=== PATIENT | male | born 1945 | race Caucasian/White ===

== ENCOUNTER 2019-11-20 10:03 | Outpatient (CLI) | payer MEDICARE, OTHER, SELFPAY ==
--- NOTE | ~2019-11-20 | NM_ITS ---
EXAMINATION: NM bone scan whole body DATE: 11/20/2019 13:44 INDICATION: Prostate cancer TECHNIQUE: 21.9 mCi Tc-99m HDP was administered intravenously. Delayed whole-body scintigrams were o btained. COMPARISON: Chest radiograph and CT abdomen and pelvis dated 11/20/2019 FINDINGS: Symmetric likely degenerative joint centered uptake of moderate severity at the bilateral acromioclav icular, glenohumeral and sternoclavicular joints, the bilateral knees and with intense uptake at the bilateral first metatarsophalangeal joints. There is additional likely facet osteoarthritis related m ild increased uptake at the right side of the lower cervical and left side of the mid cervical spine. No other suspicious foci of abnormal bone uptake to suggest metastatic disease. IMPRESSION: 1. No evident osseous metastatic disease. Reviewed, dictated and finalized at location A.
--- NOTE | ~2019-11-20 | CT_ITS ---
EXAMINATION: CT abdomen pelvis w con DATE: 11/20/2019 10:56 INDICATION: Prostate cancer. TECHNIQUE: Computed tomography (CT) of the abdomen and pelvis was performed with 100 mL Omnipaque 350 intravenous contrast. Automated exposure control and iterative reconstruction technique were employe d. The dose-length product was 1448.58 mGy-cm. COMPARISON: None. FINDINGS: The visualized portions of the lung bases demonstrate mild atelectasis. There is elevation of right hemidiaphragm. No pleural effusion. The heart size is normal. There are coronary artery calc ifications. No pericardial effusion. A calcified right hilar lymph node is consistent with old granul omatous disease. There are cysts in the liver measuring up to 2.1 cm. The gallbladder is normal. Calc ifications in the spleen are consistent with old granulomatous disease. The pancreas, adrenal glands, and kidneys are normal. The prostate is moderately enlarged. There are likely changes of appendectom y. There is dilated small bowel in the right abdomen. There is mild periportal lymphadenopathy. The l argest node measures 14 x 25 mm. There is a right inguinal hernia containing fat. There is no free in traperitoneal fluid. There is a benign bone island in the sacrum. There is mild thoracolumbar spondyl osis. There is a hemangioma in thoracic spine. IMPRESSION: 1. Mild periportal lymphadenopathy, likely reactive. 2. Dilated small bowel in right abdomen without focal transition point, consistent with adynamic ileu s. Reviewed, dictated and finalized at location A. IMPRESSION: 1. Mild periportal lymphadenopathy, likely reactive. 2. Dilated small bowel in right abdomen without focal transition point, consist ent with adynamic ileus.
--- NOTE | ~2019-11-20 | XR_ITS ---
XR chest 2V DATE: 11/20/2019 11:02 INDICATION: Prostate cancer TECHNIQUE: 2 views COMPARISON: 02/23/2017 PA and lateral chest FINDINGS: There is chronic right diaphragmatic elevation and hepatic flexure interposition between th e diaphragm and liver. Normal heart size. Hilar or mediastinal enlargement. No pulmonary infiltrate or consolidation, pleura l effusion or pulmonary vascular congestion or pneumothorax is evident. Diffuse idiopathic skeletal hyperostosis and levoscoliosis of the lower thoracic spine. No apparent o steoblastic lesions are noted. IMPRESSION: Chronic elevation right diaphragm No active cardiopulmonary disease Reviewed, dictated and finalized at location A.
[2019-11-20 10:46] LABS: Estimated Glomerular Filt Rate 54
== END 2019-11-20 10:04 | disposition home or self-care (01) ==
PROVIDERS: PCP Internal Medicine; Visit Provider Urology
DX: C61 Malignant neoplasm of prostate (principal)
CPT/HCPCS: 36415; 71046; 74177; 78306; A9561; Q9967

== ENCOUNTER 2022-01-09 00:10 | Day surgery (SDC) | payer MEDICARE, OTHER, SELFPAY ==
[2021-12-21 14:39] VITALS: BMI 33.9
--- NOTE | 2022-01-08 13:49 | SUR.PREOP ---
Spoke with pt's . Discussed Magnesium Citrate recall. The said they were not able to purchase it. Instructions given to delay taking the Miralax till 6 or 7 pm tonight. voiced understanding.
[2022-01-09 12:02] VITALS: BP 160/77; PULSE 81; RESP 18; TEMP 35.8; O2SAT 98; BMI 34.7
[2022-01-09] MEDS: LACTATED RINGERS 1,000 ML 150 ML IV CONT (12:29)
--- NOTE | 2022-01-09 12:39 | PM.HPGS ---
History of Present Illness History of Present Illness Consent: Risks, benefits, and alternatives have been discussed and questions answered. Patient agrees to proceed with procedure. Chief complaint: positive cologuard Narrative: Mahamed Haines is a 76 year old male here for positive cologuard, never had colonoscopy Review of Systems Constitutional: Constitutional: Denies headache(s) and Denies weakness Eyes: Eyes: Denies blurry vision ENT: Reports Normal hearing present, Denies headache(s) and Denies neck pain Cardiovascular: Cardiovascular: Denies chest pain and Denies dyspnea Respiratory: Respiratory: Denies dyspnea Gastrointestinal: Gastrointestinal: Reports no additional gastrointestinal complaints Genitourinary: Genitourinary: Denies dysuria Musculoskeletal: Musculoskeletal: Denies neck pain Integumentary/Breasts: Skin/Breast: Denies dry skin Neurologic: Reports Normal hearing present, Denies headache(s) and Denies weakness Psychiatric: Psychiatric: Denies anxiety Endocrine: Endocrine: Denies change in body appearance Hematologic/Lymphatic: Hematologic/Lymphatic: Denies easy bleeding Allergic/Immunologic: Allergic/Immunologic: Denies urticaria PMFSH Past Medical History Medical History (Updated 11/30/21 @ 09:51 by Sven Braun MD) Hematochezia Positive colorectal cancer screening using Cologuard test PSVT (paroxysmal supraventricular tachycardia) Surgical History Surgical History (Updated 11/30/21 @ 09:26 by Cait [facility]) H/O hernia repair Family History Family History Mother Patient's mother is Family history of congestive heart failure Father Family history of malignant neoplasm, Onset Age: 59 Patient's father is Other Family history of cardiovascular disease Hypertension Social History Social History Smoking status: Never smoker Second hand tobacco smoke exposure: No Alcohol intake: never Substance use: never Substance use type: does not use Living arrangements: with family Spiritual care concerns: No Meds Home Medications and Allergies Home Medications Medication Instructions Recorded Confirmed Type mecobalamin (vitamin B12) 1,000 1,000 mcg sublingual DAILY 06/12/19 01/09/22 History mcg disintegrating tablet,sublingual clotrimazole-betamethasone 1 1 applic topical BID #45 grams 07/08/20 01/09/22 Rx %-0.05 % topical cream diltiazem HCl 180 mg 180 mg PO DAILY #90 caps 06/28/21 01/09/22 Rx capsule,extended release 24 hr metoprolol succinate 50 mg 50 mg PO DAILY #90 tabs 08/21/21 01/09/22 Rx tablet,extended release 24 hr simvastatin 10 mg tablet 10 mg PO DAILY #90 tabs 09/25/21 01/09/22 Rx Allergies Allergy/AdvReac Type Severity Reaction Status Date / Time No Known Allergies Allergy Verified 01/09/22 12:30 Vital Signs Vital Signs - 24 hr 01/09/22 12:02 Temperature 96.4 F L Pulse Rate 81 Respiratory Rate 18 Blood Pressure 160/77 H Pulse Oximetry 98 Oxygen Delivery Room Air Exam Const: General: comfortable and no acute distress HENMT: General nose exam: Normal nares present Eyes: General: appearance normal, both eyes and all related structures Neck: Neck: no JVD Resp: Auscultation: clear to auscultation bilaterally Cardio: Rate: regular rate Rhythm: regular rhythm GI: Inspection: non-distended GI Palp: Yes Soft to palpation Skin: General skin exam: normal color Neuro: General: gait normal Speech: normal speech Extrem: General: normal to inspection Psych: Mental Status: mental status grossly normal Assessment and Plan Assessment and plan (1) Positive colorectal cancer screening using Cologuard test: Code(s): R19.5 - Other fecal abnormalities Status: Acute Assessment and P
--- NOTE | 2022-01-09 12:48 | P.PNAN_ITS ---
Anes - Initial Pre Proc Eval Procedure: Operation Date: 01/09/22 13:30 Proposed Procedures p Colonoscopy - Sven Braun MD Date/Time: 01/09/22 12:48 Surgeon: Sven Braun MD Pre Op Diagnosis: positive cologuard Patient Data Age: 76 Gender: M Height: 1.83 m Weight: 116 kg Last Vital Signs Temp 96.4 F L 01/09/22 12:02 Pulse 81 01/09/22 12:02 Resp 18 01/09/22 12:02 BP 160/77 H 01/09/22 12:02 Pulse Ox 98 01/09/22 12:02 O2 Del Method Room Air 01/09/22 12:02 Allergies Allergy/AdvReac Type Severity Reaction Status Date / Time No Known Allergies Allergy Verified 01/09/22 12:30 Home Medications Medication Instructions Recorded Confirmed Type mecobalamin (vitamin B12) 1,000 1,000 mcg sublingual DAILY 06/12/19 01/09/22 History mcg disintegrating tablet,sublingual clotrimazole-betamethasone 1 1 applic topical BID #45 grams 07/08/20 01/09/22 Rx %-0.05 % topical cream diltiazem HCl 180 mg 180 mg PO DAILY #90 caps 06/28/21 01/09/22 Rx capsule,extended release 24 hr metoprolol succinate 50 mg 50 mg PO DAILY #90 tabs 08/21/21 01/09/22 Rx tablet,extended release 24 hr simvastatin 10 mg tablet 10 mg PO DAILY #90 tabs 09/25/21 01/09/22 Rx Patient hx anesthesia problems: none Family hx anesthesia problems: none Results Review: All pre-operative results and documents have been reviewed as part of the pre- operative evaluation. [facility] Past Medical History Medical History (Updated 11/30/21 @ 09:51 by Sven Braun MD) Hematochezia Positive colorectal cancer screening using Cologuard test PSVT (paroxysmal supraventricular tachycardia) Surgical History Surgical History (Updated 11/30/21 @ 09:26 by Cait Golden CMA) H/O hernia repair Family History Family History Mother Patient's mother is Family history of congestive heart failure Father Family history of malignant neoplasm, Onset Age: 59 Patient's father is Other Family history of cardiovascular disease Hypertension Social History Social History Smoking status: Never smoker Second hand tobacco smoke exposure: No Alcohol intake: never Substance use: never Substance use type: does not use Living arrangements: with family Spiritual care concerns: No Anes - Eval Final PreProcedure Day of Procedure 01/09/22 12:48 Patient weight: obese Heart: regular rate and rhythm Lungs: clear to auscultation Airway: Mallampati scale class III Neurological: alert and oriented Last oral intake: >/= 8 hours ASA classification: III Emergent: no Anesthetic plan: proceed Anesthesia type and monitoring: general GIVS and standard monitoring Results Review: All pre-operative results and documents have been reviewed as part of the pre- operative evaluation. Informed Consent: The patient's anesthetic plan and its attendant risks and benefits were discussed with the patient/family/POA. Questions were solicited and answers provided to the satisfaction of the patient/family/POA.
[2022-01-09 13:05] VITALS: BP 80/54; PULSE 70; RESP 19; O2SAT 93
[2022-01-09 13:15] VITALS: BP 105/54; PULSE 72; RESP 22; O2SAT 99
[2022-01-09 13:20] VITALS: BP 126/53; PULSE 65; RESP 22; O2SAT 97
== END 2022-01-09 13:35 | disposition home or self-care (01) ==
PROVIDERS: PCP Internal Medicine; Visit Provider Internal Medicine Gastroenterology
PROC: 0DJD8ZZ Inspection of Lower Intestinal Tract, Via Natural or Artificial Opening Endoscopic (ICD-10-PCS; CPT 45378; principal; 2022-01-09 13:30)
DX: R19.5 Other fecal abnormalities (principal); D12.2 Benign neoplasm of ascending colon; K64.8 Other hemorrhoids; K64.4 Residual hemorrhoidal skin tags; I47.1 Supraventricular tachycardia; E66.9 Obesity, unspecified; Z68.34 Body mass index [BMI] 34.0-34.9, adult
CPT/HCPCS: 45385; 88305; J2704; J7120

== ENCOUNTER 2023-04-20 14:35 | Emergency (ER) | payer MEDICARE, SELFPAY ==
--- NOTE | ~2023-04-20 | XR_ITS ---
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 RESULT: Lines, tubes, and devices: None. Lungs and pleura: Senescent changes, otherwise clear. Cardiomediastinal silhouette: Stable. Right hemidiaphragm elevation Other: Colonic interposition. Dilated loops of likely large bowel in the upper abdomen. No acute oss eous finding. IMPRESSION: Dilated loops of large bowel the upper abdomen with right hemidiaphragm elevation, slight progression since the prior study. Reviewed, dictated and finalized at location K. LLIGENCE SENIOR SERGEANT IMPRESSION: Dilated loops of large bowel the upper abdomen with right hemidiaphragm elevati on, slight progression since the prior study.
--- NOTE | 2023-04-20 14:36 | ECG_ITS ---
Measurements Intervals [place] Rate: 167 P: NC: 0 QRS: -28 QRSD: 120 T: 21 QT: 285 QTc: 475 Interpretive Statements SUPRAVENTRICULAR TACHYCARDIA POOR R WAVE PROGRESSION, ANTERIOR LEADS INFERIOR INFARCT, AGE INDETERMINATE BORDERLINE ST-T WAVE ABNORMALITY- HIGH LATERAL LEADS ABNORMAL ECG NO PREVIOUS ECG AVAILABLE FOR COMPARISON Electronically Signed On 04-20-2023 15:46:39 QUILL FIXER by Ravin Santo D.O.
[2023-04-20 14:37] VITALS: BP 117/87; PULSE 160; RESP 20; TEMP 36.6; O2SAT 98
--- NOTE | 2023-04-20 14:43 | ED.ARRPALP ---
HPI - Arrhythmia/Palpitations General Chief Complaint: Arrhythmia/Palpitations Stated Complaint: PAT since 12 Time Seen by Provider: 04/20/23 14:42 Source: patient Mode of arrival: ambulatory Limitations: no limitations History of Present Illness HPI narrative: 77 years old white male came to the emergency room by private car complaining of palpitations started around noon today which is 2 and half hour ago. Patient have history of intermittent recurrence of SVT. Patient was sitting at that time, he denies any fever, chills, nausea, vomiting, shortness of breath or chest pain. Currently while laying down in bed is asymptomatic Related Data Home Medications Medication Instructions Recorded Confirmed mecobalamin (vitamin B12) 1,000 1,000 mcg sublingual DAILY 06/12/19 03/06/23 mcg disintegrating tablet,sublingual ferrous sulfate-vitamin C 39 mg-75 tablet PO 04/20/23 04/20/23 mg tablet Allergies Allergy/AdvReac Type Severity Reaction Status Date / Time No Known Allergies Allergy Verified 04/20/23 14:36 Review of Systems Review of Systems: All systems reviewed & are unremarkable except as noted in HPI and below PMFSH Past Medical History Medical History Hematochezia Positive colorectal cancer screening using Cologuard test PSVT (paroxysmal supraventricular tachycardia) Surgical History Surgical History H/O hernia repair Family History Family History Mother Patient's mother is Family history of congestive heart failure Father Family history of malignant neoplasm, Onset Age: 59 Patient's father is Other Family history of cardiovascular disease Hypertension Social History Social History Smoking status: Never smoker Second hand tobacco smoke exposure: No Alcohol intake: never Substance use: never Substance use type: does not use Lack of Transportation: No Lack of Food: Never True Current Housing: I Have Housing Concerned About Future Housing: No Difficulty Paying Gas/Electric Bills: No Difficulty Paying for Meds: No Currently Unemployed: No Education: Trade/Vocational Certificate Difficulty w/ Childcare or Family Care: No Living arrangements: with family Spiritual care concerns: No Exam Narrative: General appearance: Well-developed, well-nourished Skin: Normal color Head: Normocephalic, nontraumatic Eyes: Clear conjunctiva ENT: Oropharynx normal, ears normal, nose normal Neck: Supple, nontender Chest and respiratory: Airway patent, no respiratory distress, no accessory muscle use Heart: Tachycardia Abdomen: Soft, nontender, no organomegaly, quiet bowel sounds Vascular: Normal peripheral pulses, normal capillary refill. Musculoskeletal: Normal range of motion, nontender back Neurologic: Alert and oriented ?3, [employer] MA[employer]TE[employer] WORKER is normal as tested, no gross motor deficit Course Reevaluation(s) Reevaluation #1: Currently patient is asymptomatic, monitor showing normal sinus rhythm with intermittent PVCs. Date: 04/20/23 Time: 15:38 Vital Signs Vital signs: Vital Signs Temperature 36.6 C 04/20/23 14:37 Pulse Rate 160 H 04/20/23 14:37 Respiratory Rate 20 04/20/23 14:37 Blood Pressure 117/87 04/20/23 14:37 Pulse Oximetry 98 04/20/23 14:37 Oxygen Delivery Room Air 04/20/23 14:37 Temperature 36.6 C 04/20/23 14:37 Pulse Rate 160 H 04/20/23 14:37 Respiratory Rate 20 04/20/23 14:37 Blood Pressure 117/87
--- NOTE | 2023-04-20 14:50 | ECG_ITS ---
Measurements Intervals [place] Rate: 90 P: 37 SC: 182 QRS: -11 QRSD: 90 T: 20 QT: 364 QTc: 446 Interpretive Statements SINUS RHYTHM VENTRICULAR COUPLET AND VENTRICULAR PREMATURE COMPLEXES DELAYED PRECORDIAL R/S TRANSITION CONSIDER INFERIOR INFARCT, AGE INDETERMINATE BORDERLINE ST-T WAVE ABNORMALITY- ANTERIOR LEADS BASELINE ARTIFACT- I, III, AVR, AVL, AVF, V1-V6 ABNORMAL ECG COMPARED TO ECG 04/20/2023 14:41:22 SINUS RHYTHM NOW PRESENT Electronically Signed On 04-20-2023 15:48:18 [employer]OX [employer] by Ravin Santo D.O.
[2023-04-20 15:05] LABS: Basophils Percent Auto 0.2 % (0.2-1.2); Eosinophils Absolute Auto 0.1 K/mm3 (0-0.3); Eosinophils Percent Auto 1.1 % (0-4.4); Hematocrit 43.5 % (42.0-52.0); Hemoglobin 13.9 g/dL (14.0-18.0); Immature Granulocyte Absolute 0.03 K/mm3 (0.00-0.031); Immature Granulocyte Percent A 0.3 % (0-0.5); Lymphocytes Absolute Auto 1.75 K/mm3 (0.9-3.2); Lymphocytes Percent Auto 19.1 % (18.3-44.2); Mean Corpuscular Hemoglobin 30.5 pg (26-34); Mean Corpuscular Volume 95.6 fl (80-100); Mean Platelet Volume 8.9 fl (7.4-10.4); Monocytes Absolute Auto 0.8 K/mm3 (0.1-0.6); Monocytes Percent Auto 8.4 % (2.6-8.5); Neutrophils Absolute Auto 6.5 K/mm3 (1.3-6.7); Neutrophils Percent Auto 70.9 % (45.5-73.1); Platelet Count Result 192 k/mm3 (150-375); Red Blood Count 4.55 M/mm3 (4.6-6.20); Red Cell Distribution Width 12.9 % (11.5-14.5); White Blood Count 9.2 K/mm3 (4.5-10.0)
--- NOTE | 2023-04-20 15:06 | PC.NURSE ---
This RN and DR. Mcfarland performed valsalva manneuver. Pt heart rate started at 160's and ended in 90's. Pt responded to non invasive tx.
[2023-04-20 15:15] LABS: INR 1.1; Prothrombin Time 14.5 Seconds (11.1-14.7)
[2023-04-20 15:16] LABS: Partial Thromboplastin Time 36.7 SECONDS (22.3-36.8)
[2023-04-20 15:17] LABS: Alanine Aminotransferase 23 U/L (6-50); Alkaline Phosphatase 70 U/L (38-126); Anion Gap 12 mmol/L (8-16); Aspartate Amino Transferase 15 U/L (17-59); Bilirubin,Total 1.2 mg/dL (0.2-1.3); Blood Urea Nitrogen 19 mg/dL (9-20); Calcium 8.8 mg/dL (8.4-10.2); Carbon Dioxide 22 mmol/L (22-30); Chloride 104 mmol/L (98-107); Estimated CRCL calculation 67 ml/min; Estimated Glomerular Filt Rate > 60; Glucose 195 mg/dL (65-110); Lipase 49 U/L (23-300); Potassium 3.7 mmol/L (3.4-5.0); Sodium 138 mmol/L (137-145)
[2023-04-20 15:28] LABS: Troponin I < 0.012 ng/mL (0.000-0.034)
== END 2023-04-20 15:44 | disposition home or self-care (01) ==
PROVIDERS: Emergency Provider Emergency Medicine; PCP Internal Medicine
DX: I47.10 Supraventricular tachycardia, unspecified (principal); R94.31 Abnormal electrocardiogram [ECG] [EKG]; I49.3 Ventricular premature depolarization; R00.8 Other abnormalities of heart beat
CPT/HCPCS: 36415; 71045; 80053; 83690; 84484; 85025; 85610; 85730; 93005; 99284